=== PATIENT | female | born 1970 | race Caucasian/White ===

== ENCOUNTER 2019-06-18 11:34 | Outpatient (CLI) | payer OTHER ==
[2019-06-18 12:41] LABS: BASOPHILS % (AUTO) 0.5 % (0.0-2.0); EOSINOPHILS # (AUTO) 0.1 K/uL (0-0.4); EOSINOPHILS % (AUTO) 1.6 % (0.0-4.0); HEMATOCRIT 38.5 % (36-48); HEMOGLOBIN 12.8 g/dL (12.0-16.0); LYMPHOCYTES # (AUTO) 1.7 K/uL (2.5-16.5); LYMPHOCYTES % (AUTO) 33.4 % (20.5-51.1); MEAN CORPUSCULAR HEMOGLOBIN 29 pg (27-31); MEAN CORPUSCULAR HGB CONC 33 g/dL (33-37); MEAN CORPUSCULAR VOLUME 88.4 fL (80-94); MONOCYTES # (AUTO) 0.3 K/uL (0.8-1.0); MONOCYTES % (AUTO) 6.3 % (1.7-9.3); NEUTROPHILS % (AUTO) 58.2 % (42.2-75.2); PLATELET COUNT (AUTO) 294 K/uL (140-450); RED BLOOD CELL COUNT(AUTO) 4.35 MIL/uL (4.20-5.40); RED CELL DISTRIBUTION WIDTH 13.7 % (11.6-13.7); WHITE BLOOD COUNT (AUTO) 5.2 K/uL (4.8-10.8)
[2019-06-18 13:12] LABS: ALBUMIN 4.1 g/dL (3.4-5.0); ANION GAP 14.2 (8-16); CARBON DIOXIDE 25.6 mmol/L (21-32); CREATININE 0.9 mg/dL (0.6-1.3); POTASSIUM 3.8 mmol/L (3.5-5.1); THYROID STIMULATING HORMONE 2.06 uIU/mL (0.34-3.74)
[2019-06-19 07:23] LABS: FOLIC ACID 15.7 ng/mL (>3.0)
[2019-06-19 08:09] LABS: ESTRADIOL SERUM <5.0 pg/mL (.); T4 (THYROXINE) 5.7 ug/dL (4.5-12.0); TRIIODOTHYRONINE FREE 2.6 pg/mL (2.0-4.4)
== END 2019-06-18 19:29 | disposition home or self-care (01) ==
LOC: MLB 11:34
PROVIDERS: ATTEND Obstetrics & Gynecology
DX: N95.1 Menopausal and female climacteric states (principal); R53.83 Other fatigue
CPT/HCPCS: 36415; 80053; 82306; 82607; 82670; 82746; 83001; 84144; 84403; 84436; 84443; 84481; 85025; 86376

== ENCOUNTER 2019-07-31 08:05 | Outpatient (CLI) | payer OTHER | END 2019-07-31 20:53 | disposition home or self-care (01) | LOC: MLB 08:05 | PROVIDERS: ATTEND Obstetrics & Gynecology | DX: E03.9 Hypothyroidism, unspecified (principal) | CPT/HCPCS: 36415; 84481 ==

== ENCOUNTER 2019-08-04 06:10 | Emergency (ER) | payer OTHER ==
[~2019-08-04] VITALS: Ht 165.1 cm; Wt 63.5 kg
[2019-08-04 06:10] VITALS: BP 123/76
--- NOTE | 2019-08-04 06:10 | NUR ---
PT TAKEN TO BED 2
[2019-08-04] MEDS ORDERED: NACL 0.9% 1,000 ML IV ONE (06:15)
--- NOTE | 2019-08-04 06:16 | NUR ---
Dr. Wisdom examining patient.
--- NOTE | 2019-08-04 06:28 | NUR ---
PT TAKEN TO CT
--- NOTE | 2019-08-04 06:58 | NUR ---
PT RETURN FROM CT
[2019-08-04 08:15] VITALS: BP 123/76
--- NOTE | 2019-08-04 08:20 | NUR ---
Patient discharged with v/s stable. Written and verbal after care instructions given and explained. Patient verbalized understanding. Ambulatory with steady gait. All questions addressed prior to discharge. Advised to follow up with PMD.
== END 2019-08-04 08:20 | disposition home or self-care (01) ==
LOC: MED 06:10
DX: R07.89 Other chest pain (principal); M25.511 Pain in right shoulder
CPT/HCPCS: 71260; 99283; Q9967

== ENCOUNTER 2019-08-12 07:20 | Outpatient (CLI) | payer OTHER ==
[2019-08-13 08:07] LABS: ESTRADIOL SERUM 57.6 pg/mL (.); FOLLICLE STIMULATING HORMONE 54.2 mIU/mL (.)
== END 2019-08-12 19:04 | disposition home or self-care (01) ==
LOC: MLB 07:20
PROVIDERS: ATTEND Obstetrics & Gynecology
DX: N95.1 Menopausal and female climacteric states (principal)
CPT/HCPCS: 36415; 82670; 83001; 84403

== ENCOUNTER 2019-09-14 13:01 | Outpatient (CLI) | payer OTHER ==
[2019-09-14 13:21] LABS: ANION GAP 14.9 (8-16); CARBON DIOXIDE 27.9 mmol/L (21-32); CREATININE 0.9 mg/dL (0.6-1.3); POTASSIUM 3.8 mmol/L (3.5-5.1)
== END 2019-09-15 20:27 | disposition home or self-care (01) ==
LOC: MLB 13:01
PROVIDERS: ATTEND Family Medicine
DX: R53.83 Other fatigue (principal)
CPT/HCPCS: 36415; 80048